=== PATIENT | male | born 1995 | race Caucasian/White ===

== ENCOUNTER 2016-06-03 12:08 | Emergency (ER) | payer OTHER ==
[2016-06-03 12:17] VITALS: BP 134/102; PULSE 93; RESP 20; TEMP 98.8; O2SAT 97
--- NOTE | 2016-06-03 12:50 | EDPHY ---
H & P Smoking Status: Never smoked Time Seen by Provider: 06/03/16 12:12 HPI/ROS: CHIEF COMPLAINT: Right shoulder dislocation HISTORY OF PRESENT ILLNESS: 21-year-old male presents emergency department complaining of right shoulder pain. Patient fell on outstretched right hand while playing flag football today and had an immediate deformity and pain in his shoulder. Patient is [id number], denies previous dislocations. He reports numbness and tingling to his deltoid. No head strike, no neck pain, he denies other complaints. REVIEW OF SYSTEMS: A comprehensive 10 point review of systems is otherwise negative aside from elements mentioned in the history of present illness. (Mariann Santos) Physical Exam: GEN: Awake, alert, oriented, no acute distress RESP: nl resp effort MSK: Right shoulder with obvious deformity, decreased range of motion, decreased sensation to deltoid, 2+ pedal pulses, cap refill less than 2 seconds SKIN: No break in skin. (Mariann Santos) Constitutional: Initial Vital Signs Temperature (C) 37.1 C 06/03/16 12:15 Heart Rate 93 06/03/16 12:15 Respiratory Rate 20 06/03/16 12:15 Blood Pressure 134/102 H 06/03/16 12:15 O2 Sat (%) 97 06/03/16 12:15 O2 Delivery Mode Room Air Allergies/Adverse Reactions: No Known Allergies Allergy (Verified 02/24/14 18:41) Home Medications: Medication Instructions Recorded AZITHROMYCIN [Z-PACK] 250 - 500 mg PO DAILY #6 tab 02/24/14 AZITHROMYCIN [Z-PACK] 500 mg PO DAILY #1 packet 12/11/14 Albuterol [Proventil Inhaler HFA 1 - 2 puffs IH Q4PRN PRN #1 mdi 12/11/14 (*)] Codeine/Promethazine [Phenergan W/ 5 ml PO Q6 PRN #1 bottle 12/11/14 Codeine Syrup] MDM/Departure - [facility] Imaging: I viewed and interpreted images myself - [facility] Procedures: Procedure: Dislocation reduction. Indication: Dislocation of the right shoulder. Risks, benefits, alternatives discussed with the patient. Consent was obtained. The right shoulder was reduced using a combination of the Torres technique and scapular manipulation without complications. The patient has a normal neurovascular exam distal to the injury post reduction. Patient tolerated the procedure well and is significantly more comfortable. Post reduction x-ray demonstrates reduction of the joint to the anatomic position. The procedure was performed by myself. (Mariann Santos) ED Course/Re-evaluation: The patient wasevaluatedand managed by themidlevel provider. Idiscussed the patient's presentation and course with thephysicianassistantor nurse practitionerand agree with theevaluation. My co-signature indicates that I have reviewed this chart and I agree with the findings and plan of care as documented. I am the secondary supervisingphysician. (Gem Miller) - Depart Disposition: Home, Routine, Self-Care Clinical Impression: Dislocation of right shoulder joint Condition: Good Instructions: Shoulder Dislocation (ED) Additional Instructions: Rest, ice, keep arm in sling, do not lift anything heavier than a glass of water , do not lift arms above waist. Follow up with the orthopedist at 1st available appointment, call Sunday to schedule this. Come out of the sling a few times a day to straighten and bend your arm at the elbow. Take 600 mg of ibuprofen every 8 hours with food for pain. You may also take Tylenol 650 mg every 8 hours for pain. Referrals: Erich Werner MD [Medical Doctor] - As per Instructions (Orthopedist on-call)
== END 2016-06-03 13:01 | disposition home or self-care (01) ==
LOC: EDUNIT#
PROC: 0RSJXZZ Reposition Right Shoulder Joint, External Approach (ICD-10-PCS; principal; 2016-06-03)
DX: S43.004A Unspecified dislocation of right shoulder joint, initial encounter (principal); W18.39XA Other fall on same level, initial encounter; Y99.8 Other external cause status; Y93.61 Activity, american tackle football
CPT/HCPCS: A4565

== ENCOUNTER 2016-06-17 22:24 | Emergency (ER) | payer OTHER ==
[2016-06-17] MEDS ORDERED: IBUPROFEN 600 MG TAB PO ONE ×2 (22:39→22:41)
--- NOTE | 2016-06-17 23:33 | EDPHY ---
H & P Stated Complaint: COUGH FEVER, THROAT PAIN 3 DAYS, DENIES NVD HPI/ROS: Chief Complaint: Cough HPI: 21-year-old male presenting with 3 days of upper respiratory congestion, sore throat, dry nonproductive cough, subjective chills. He has not taken his temperature at home. No chest pain. No shortness of breath. No nausea vomiting diarrhea. States that feels like when he had strep throat several months ago. Is able to swallow but has some discomfort. Is tolerating fluids. ROS: 10 point Review of Systems is negative except as noted in the HPI. PMH: None Medications: None Allergies: No known drug allergies Social History: No smoking, occasional alcohol, no recreational drug use Family History: non-contributory Physical Exam: Gen: Awake, Alert, No Distress HEENT: Nose: no rhinorrhea Eyes: PERRLA, EOMI Mouth: Moist mucosa mild pharyngeal erythema without exudate or edema Neck: Supple, no JVD Chest: nontender, lungs clear to auscultation Heart: S1, S2 normal, no murmur Abd: Soft, non-tender, no guarding Back: no CVA tenderness, no midline tenderness Ext: no edema, non-tender Skin: no rash Neuro: CN II-XII intact, Sensation grossly intact, Strength 5/5 in bilateral upper and lower extremities - Personal History Current Tetanus/Diphtheria Vaccine: Yes Current Tetanus Diphtheria and Acellular Pertussis (TDAP): Yes - Medical/Surgical History Hx Asthma: No Hx Chronic Respiratory Disease: No Hx Diabetes: No Hx Cardiac Disease: No Hx Renal Disease: No Hx Cirrhosis: No Hx Alcoholism: No Hx HIV/AIDS: No Hx Splenectomy or Spleen Trauma: No Other PMH: Knee surgery - Social History Smoking Status: Never smoked Constitutional: Initial Vital Signs Temperature (C) 38.2 C 06/17/16 22:33 Heart Rate 90 06/17/16 22:33 Respiratory Rate 18 06/17/16 22:33 Blood Pressure 119/70 06/17/16 22:33 O2 Sat (%) 94 06/17/16 22:33 O2 Delivery Mode Room Air Allergies/Adverse Reactions: No Known Allergies Allergy (Verified 06/17/16 22:35) Home Medications: Medication Instructions Recorded Ibuprofen 200 mg PO 06/17/16 Medical Decision Making ED Course/Re-evaluation: Rapid strep in a rib. Symptoms consistent with viral upper respiratory symptoms. Will discharge rest, fluids, Tylenol and Motrin, follow up with [facility]. - Data Points Laboratory Results: 06/17/16 06/17/16 Unknown 22:42 Group A Strep Screen NEGATIVE (NEGATIVE) Group A Strep DNA Pending Medications Given: Discontinued Medications Ibuprofen (Motrin) 600 mg PO EDNOW ONE Stop: 06/17/16 22:42 Last Admin: 06/17/16 22:56 Dose: 600 mg Departure - Departure Disposition: Home, Routine, Self-Care Clinical Impression: Viral upper respiratory illness Condition: Good Instructions: Viral Syndrome (ED) Additional Instructions: Get plenty of rest Drink plenty of fluids May alternate ibuprofen with acetaminophen every 4 hours as needed for fevers, chills, aches or pains. Referrals: SHO DONOVAN [Other] - As per Instructions
[2016-06-17 23:38] VITALS: BP 121/68; PULSE 66; RESP 16; TEMP 98.4; O2SAT 98
== END 2016-06-17 23:37 | disposition home or self-care (01) ==
DX: J06.9 Acute upper respiratory infection, unspecified (principal)